=== PATIENT | male | born 1990 | race Caucasian/White ===

== ENCOUNTER 2018-07-11 00:19 | Emergency (ER) | payer SELFPAY ==
[2018-07-11] MEDS ORDERED: Sodium Chloride 0.9% 1,000 ML IV STA ×2 (01:00→01:12)
--- NOTE | 2018-07-11 01:15 | ED PDOC ---
HPI: Influenza Time Seen by Provider: 07/11/18 00:39 Chief Complaint: Fever Chief Complaint (Provider): Flu like symptoms History Per: Patient Exam Limitations: no limitations Onset/Duration Of Symptoms: Days (x3) Symptoms include: fever, sore throat, cough. denies: vomiting, diarrhea Additional complaint(s):: 27 year old [place] male, with no past medical history, presents to the ED complaining of flu like symptoms for 3 days. Patient reports fever and chills on Tuesday night which has been intermittent. On Tuesday, patient went to [facility] where he was started on Tamiflu and instructed to take Ibuprofen and Tylenol. Strep swab and flu swab were both negative. He states he has had persistent fever and chills every night that spike to 102.7 and reports a body ache, sore throat, decreased appetite, and mild dry cough. Denies diarrhea vomiting, and abdominal pain. PMD: none Past Medical History Reviewed: Historical Data, Nursing Documentation, Vital Signs Vital Signs: Last Vital Signs Temp 99.1 F 07/11/18 00:37 Pulse 130 H 07/11/18 00:41 Resp 17 07/11/18 00:37 BP 129/72 07/11/18 00:37 Pulse Ox 97 07/11/18 00:41 - Medical History PMH: No Chronic Diseases - Surgical History Surgical History: No Surg Hx - Family History Family History: States: Unknown Family Hx - Social History Current smoker - smoking cessation education provided: No Alcohol: None Drugs: Denies - Allergies Allergies/Adverse Reactions: Allergies Allergy/AdvReac Type Severity Reaction Status Date / Time No Known Allergies Allergy Verified 07/11/18 00:38 Review of Systems ROS Statement: Except As Marked, All Systems Reviewed And Found Negative Constitutional: Positive for: Fever, Chills, Other (Body ache) ENT: Positive for: Throat Pain (Sore throat) Respiratory: Positive for: Cough Gastrointestinal: Negative for: Vomiting, Abdominal Pain, Diarrhea Physical Exam - Reviewed Nursing Documentation Reviewed: Yes Vital Signs Reviewed: Yes - Physical Exam Appears: Positive for: Non-toxic, No Acute Distress Head Exam: Positive for: ATRAUMATIC, NORMOCEPHALIC Skin: Positive for: Normal Color, Warm, Dry Eye Exam: Positive for: Normal appearance ENT: Positive for: Tonsillar Exudate, Tonsillar Swelling (2+) Cardiovascular/Chest: Positive for: Regular Rate, Rhythm, Tachycardia Respiratory: Positive for: Normal Breath Sounds. Negative for: Wheezing, Respiratory Distress Gastrointestinal/Abdominal: Positive for: Normal Exam, Soft. Negative for: Tenderness Extremity: Positive for: Normal ROM Neurologic/Psych: Positive for: Alert, Oriented. Negative for: Motor/Sensory Deficits Comments: Patient is febrile Medical Decision Making Medical Decision Making: Initial Impression: 27 year old male with flu like symptoms Initial Plan: --CMP --Lact acid stat --ED urine dipstick --CBC --Sodium chloride 1000mL IV --Toradol 30mg IV --Tylenol 975mg PO --Blood culture --Tompkins stat --Influenza A B stat --Rapid strep group --Urinalysis 02:48 Labs reviewed showing mild elevation in transaminases. Although mono stat was negative, provider believes symptoms are consistent with infectious mononucleosis. Patient reports improvement in symptoms and is stable for angie caicedo with diagnosis of mononucleosis. Scribe Attestation: Documented by Aubrey Loyd acting as a scribe for Uvaldo Dougherty MD. Provider Scribe Attestation: All medical record entries made by the Scribe were at my direction and personally dictated by me. I have reviewed the chart and agree that the record accurately reflects my personal performance of the history, physical exam, medical decision making, and the department course for this patient. I have also personally directed, reviewed, and agree with the discharge instructions and disposition. - Laboratory Results Result Diagrams: 07/11/18 01:10 07/11/18 01:10 - ECG O2 Sat by Pulse Oximetry: 97 (RA) Pulse Ox Interpretation: Normal Disposition - Clinical Impression Clinical Impression: Mononucleosis - Disposition Disposition: Routine/Home Disposition Time: 02:48 Condition: STABLE Instructions: Mononucleosis Forms: [facility] (Portuguese)
[2018-07-11 01:34] LABS: BASO % 0.7 % (0.0-2.0); EOS # 0.1 K/uL (0.0-0.7); EOS % 0.8 % (0.0-4.0); HEMOGLOBIN 14.7 g/dL (12.0-18.0); LYMPH # 0.7 K/uL (1.0-4.3); LYMPH % 9.5 % (20.0-40.0); MEAN CELL VOLUME 84.7 fl (80.0-94.0); MEAN CORPUSCULAR HEMOGLOBIN 27.9 pg (27.0-31.0); MEAN PLATELET VOLUME 7.4 fl (7.2-11.7); MONO # 0.7 K/uL (0.0-0.8); MONO % 9.7 % (0.0-10.0); NEUT # 5.6 K/uL (1.8-7.0); NEUT % 79.3 % (50.0-75.0); PLATELET COUNT 207 K/uL (130-400); RBC 5.26 Mil/uL (4.40-5.90); RED CELL DISTRIBUTION WIDTH 13.2 % (11.5-14.5); WHITE BLOOD COUNT 7.1 K/uL (4.8-10.8)
[2018-07-11 01:48] LABS: ALB/GLOB RATIO 1.3 (1.0-2.1); ALBUMIN 4.5 g/dL (3.5-5.0); ALT/SGPT 184 U/L (21-72); AST/SGOT 206 U/L (17-59); BLOOD UREA NITROGEN 15 mg/dl (9-20); CALCIUM 9.1 mg/dL (8.4-10.2); GFR NON-AFRICAN AMERICAN > 60
[2018-07-11 03:28] LABS: BANDS 3 % (0-2); EOSINOPHIL 1 % (0-7); LYMPHOCYTE 10 % (20-50); MONOCYTE 9 % (0-10); NEUTROPHIL 76 % (42-75); PLATELET ESTIMATE NORMAL (NORMAL); REACTIVE LYMPHOCYTES 1 % (0-0); TOTAL CELLS COUNTED 100
[2018-07-11 03:29] LABS: PLATELET CLUMPS PRESENT
[2018-07-11 04:02] VITALS: BP 129/76; PULSE 84; RESP 17; TEMP 98.2; O2SAT 99
== END 2018-07-11 03:36 | disposition home or self-care (01) ==
LOC: H.ER 00:19
DX: B27.90 Infectious mononucleosis, unspecified without complication (principal)
CPT/HCPCS: 80053; 83605; 85025; 86308; 87040; 87070; 87430; 87804; 96361; 96374; 99284; J1885; J7030